=== PATIENT | male | born 1960 | race Caucasian/White ===

== ENCOUNTER 2019-10-12 23:07 | Emergency (ER) | payer OTHER ==
[~2019-10-12] VITALS: Ht 172.7 cm; Wt 104.5 kg
[2019-10-12 23:42] VITALS: Ht 172.7 cm; Wt 104.5 kg
[2019-10-12] MEDS ORDERED: GLUCOPHAGE1000 MG PO (23:42)
[2019-10-12] MEDS ORDERED: METOPROLOL TART25 MG PO (23:43)
[2019-10-12] MEDS ORDERED: FUROSEMIDE40 MG PO (23:43)
[2019-10-12] MEDS ORDERED: GLIPIZIDE10 MG PO (23:43)
[2019-10-12] MEDS ORDERED: TRICOR145 MG PO (23:44)
[2019-10-12] MEDS ORDERED: COZAAR100 MG PO (23:44)
[2019-10-12] MEDS ORDERED: CLARITIN 10 MG10 MG PO (23:44)
[2019-10-13 01:25] LABS: BASOPHILS 0.2 % (0-2); EOSINOPHILS 0.2 % (0-7); HEMATOCRIT 41.4 % (42.0-54.0); HEMOGLOBIN 14.1 g/dL (13.5-17.5); IMMATURE GRANULOCYTES 0.3 % (0-5); MCH 28.5 pg (26.0-34.0); MCHC 34.1 g/dL (31.0-37.0); MCV 83.6 fL (80.0-100.0); MEAN PLATELET VOLUME 9.7 fL (7.4-10.4); MONOCYTES 5.8 % (2-11); NEUTROPHILS 75.5 % (40-80); PLATELET COUNT 287 10x3/uL (130-400); RBC 4.95 10x6/uL (4.20-6.10); RDW 12.8 % (11.5-14.5); WBC 12.9 10x3/uL (4.8-10.8)
[2019-10-13 01:29] LABS: CALC OSMOLALITY 273 mosm/kg (275-300); CALCIUM 9.3 mg/dL (8.5-10.1); CARBON DIOXIDE 25.8 mmol/L (21.0-32.0); CHLORIDE - SERUM 99 mmol/L (98-107); CREATININE - SERUM 1.3 mg/dL (0.6-1.3); GLUCOSE 153 mg/dL (74-106); POTASSIUM - SERUM 3.4 mmol/L (3.5-5.1); SODIUM 135 mmol/L (136-145); UREA NITROGEN 15 mg/dL (7-18); eGFR NON AFRICAN AMERICAN 60 mL/min (90-120)
[2019-10-13 01:32] LABS: APTT 26.6 SECONDS (22.8-39.4); INR 0.99 (0.85-1.17)
[2019-10-13 01:39] LABS: ALBUMIN 4.3 g/dL (3.4-5.0); ALKALINE PHOSPHATASE 66 U/L (30-120); ALT (SGPT) 23 U/L (10-68); BILIRUBIN - TOTAL 0.46 mg/dL (0.2-1.3); PROTEIN - SERUM 7.9 g/dL (6.4-8.2); TROPONIN-I < 0.017 ng/mL (0.000-0.060)
[2019-10-13] MEDS ORDERED: CATAPRES0.2 MG PO (02:01)
[2019-10-13 02:35] LABS: BILIRUBIN NEGATIVE (NEGATIVE); GLUCOSE NEGATIVE (NEGATIVE); KETONE NEGATIVE (NEGATIVE); NITRITE NEGATIVE (NEGATIVE); UROBILINOGEN NORMAL (NORMAL)
[2019-10-13 02:56] VITALS: BP 122/62
== END 2019-10-13 02:56 | disposition home or self-care (01) ==
LOC: D.ER 23:07
PROVIDERS: Family Medicine
DX: I10 Essential (primary) hypertension (principal); E11.9 Type 2 diabetes mellitus without complications; J44.9 Chronic obstructive pulmonary disease, unspecified; Z79.84 Long term (current) use of oral hypoglycemic drugs